=== PATIENT | female | born 2000 | race African-American/Black ===

== ENCOUNTER 2024-06-19 10:14 | Day surgery (SDC) | payer SELFPAY ==
[2024-06-19 12:42] LABS: BASOPHILS ABSOLUTE AUTO 0.02 K/uL (0.00-0.20); BASOPHILS PERCENT AUTO 0.3 % (0.0-1.0); EOSINOPHILS ABSOLUTE AUTO 0.11 K/uL (0.00-0.45); EOSINOPHILS PERCENT AUTO 1.6 % (0.0-6.0); HEMOGLOBIN 12.8 g/dL (12.0-16.0); IMMATURE GRAN ABSOLUTE AUTO 0.02 K/uL (0.00-0.05); IMMATURE GRAN PERCENT AUTO 0.3 % (0.0-0.4); LYMPHOCYTES ABSOLUTE AUTO 2.23 K/uL (1.00-4.80); LYMPHOCYTES PERCENT AUTO 33.4 % (24.0-44.0); MEAN CORPUSCULAR HEMOGLOBIN 25.1 pg (28.0-32.0); MEAN CORPUSCULAR VOLUME 78.4 fL (83.0-99.0); MEAN PLATELET VOLUME 9.2 fL (9.4-12.3); MONOCYTES PERCENT AUTO 7.5 % (0.0-8.0); NEUTROPHILS ABSOLUTE AUTO 3.79 K/uL (1.80-7.70); NEUTROPHILS PERCENT AUTO 56.9 % (41.0-71.0); PLATELET COUNT,PLT 278 K/uL (150-400); WHITE BLOOD CELL COUNT,WBC 6.67 K/uL (3.9-11.3)
[2024-06-19 13:00] LABS: APPEARANCE,URINE CLEAR; BILIRUBIN,URINE NEGATIVE (NEGATIVE); COLOR,URINE YELLOW; GLUCOSE,URINE NEGATIVE (NEGATIVE); KETONES,URINE NEGATIVE (NEGATIVE); LEUKOCYTE ESTERASE,URINE NEGATIVE (NEGATIVE); NITRITE,URINE NEGATIVE (NEGATIVE); OCCULT BLOOD,URINE NEGATIVE (NEGATIVE); PROTEIN,URINE NEGATIVE (NEGATIVE); UROBILINOGEN,URINE 0.2 EU/dL (<2.0)
[2024-06-19 13:06] LABS: A/G RATIO 0.7 (0.9-1.6); ALBUMIN 3.3 g/dL (3.4-5.0); BILIRUBIN TOTAL 0.5 mg/dL (0.2-1.0); CALCIUM 8.5 mg/dL (8.5-10.1); CARBON DIOXIDE,CO2 23.3 mmol/L (21.0-32.0); CREATININE 0.7 mg/dL (0.6-1.0); EST CRCL DRUG DOSING (CG) 102.51 mL/min; POTASSIUM,K 3.6 mmol/L (3.5-5.1); PROTEIN TOTAL,TP 8.1 g/dL (6.4-8.2)
[2024-06-19] MEDS: Acetaminophen 500 MG Tab PO STA (14:21)
[2024-06-19 14:26] LABS: C. TRACHOMATIS BY PCR NOT DETECTED; N. GONORRHOEAE BY PCR NOT DETECTED
[2024-06-19 14:59] LABS: CANDIDA DNA PROBE NEGATIVE (NEGATIVE); GARDNERELLA DNA PROBE NEGATIVE (NEGATIVE); TRICHOMONAS DNA PROBE NEGATIVE (NEGATIVE)
[2024-06-19] MEDS ORDERED: Misoprostol 200 MCG Tab ONE (17:16)
[2024-06-19] MEDS ORDERED: Methylergonovine 0.2 MG/1 ML Amp ONE (17:17)
[2024-06-19] MEDS ORDERED: propofoL 500 MG/50 ML 50 ML ONE (17:19)
[2024-06-19] MEDS ORDERED: Propofol 200 MG/20 ML SDV ONE (17:20)
[2024-06-19] MEDS ORDERED: fentaNYL 100 MCG/2 ML SDV ONE (17:20)
[2024-06-19] MEDS ORDERED: Sodium Chloride 0.9% 20 ML SDV IV PRN (17:22)
[2024-06-19] MEDS ORDERED: Sodium Chloride 0.9% 2.5 ML Syringe FLUSH PRN (17:22)
[2024-06-19] MEDS ORDERED: Ondansetron 4 MG/2 ML SDV IVPUSH PRN (17:22)
[2024-06-19] MEDS ORDERED: Ketorolac 30 MG/ML SDV IVPUSH ONE (17:22)
[2024-06-19] MEDS ORDERED: Promethazine 25 MG/ML SDV IM PRN (17:22)
[2024-06-19] MEDS ORDERED: Morphine 4 MG/ML Syringe IVPUSH PRN (17:22)
[2024-06-19] MEDS ORDERED: ceFAZolin 1 GM in Sodium Chloride 0.9% 50 ML IV ONE (17:22)
[2024-06-19] MEDS ORDERED: Sodium Chloride 0.9% 10 ML Syringe FLUSH PRN (17:22)
[2024-06-19] MEDS ORDERED: dexmedeTOMIDine HCl 200 MCG/2 ML SDV ONE (17:26)
[2024-06-19] MEDS ORDERED: Rocuronium Bromide 50 MG/5 ML Syringe ONE (17:27)
[2024-06-19] MEDS ORDERED: Dexamethasone 4 MG/ML 5 ML MDV ONE (17:55)
[2024-06-19] MEDS ORDERED: ceFAZolin 1 GM Vial ONE (18:02)
[2024-06-19] MEDS ORDERED: Ketorolac 30 MG/ML SDV ONE (18:27)
[2024-06-19] MEDS ORDERED: Sugammadex Sodium 200 MG/2 ML VIAL IV ONE (18:27)
[2024-06-19] MEDS ORDERED: Ondansetron 4 MG/2 ML SDV ONE (18:59)
[2024-06-20] MEDS ORDERED: Ibuprofen 800 MG Tab PO PRN (02:00)
== END 2024-06-19 21:00 | disposition home or self-care (01) ==
LOC: MW.ED 10:14 → MW.SDS 17:01 → MW.MS 17:02 → MW.SDS 21:00
PROVIDERS: ATTEND Obstetrics & Gynecology
DX: O02.1 Missed abortion (principal); O03.4 Incomplete spontaneous abortion without complication
CPT/HCPCS: 36415; 59820; 76801; 76830; 80053; 81003; 83690; 84702; 85025; 86900; 86901; 87480; 87491; 87510; 87591; 87660; 99285; A9270; J0690; J1100; J1885; J2405; J2704; J3010; 00940; 59812; 99283; 99284; J2210; J3490